=== PATIENT | female | born 1970 | race American Indian/Alaskan Native ===

== ENCOUNTER 2018-03-25 19:44 | Emergency (ER) | payer BC, OTHER ==
--- NOTE | 2018-03-25 20:39 | Emergency Department Report ---
HPI - General Chief Complaint: Psych Time Seen by Provider: 03/25/18 20:12 - HPI HPI: 48-year-old female presents to the emergency department via EMS after an intentional overdose of trazodone about 10-15 pills that happened about an hour prior to arrival. Patient is awake, alert and oriented with complaints of some dizziness. When asked why she took this overdose she says "because life became too much to deal with." She says that she does have a diagnosed history of depression for which she takes Zoloft and trazodone. She also has a past medical history of asthma. She says that she sees Shanon Ambriz at [facility]. ED Past Medical Hx - Past Medical History Hx Hypertension: Yes Hx Congestive Heart Failure: No Hx Diabetes: No Hx Asthma: Yes Hx COPD: No Additional medical history: High cholesterol - Surgical History Additional Surgical History: tubal ligation - Social History Smoking Status: Current Every Day Smoker Substance Use Type: Alcohol - Medications Home Medications: Home Medications Medication Instructions Recorded Confirmed Last Taken Type Fexofenadine/Pseudoephedrine 1 each PO DAILY 09/05/13 09/08/13 Unknown History [Alexandra-D 12 Hour Tablet] Aspirin [Aspirin TAB] 81 mg PO QDAY #30 tablet 09/08/13 Unknown Rx Clopidogrel [Plavix] 75 mg PO QDAY #90 tablet 09/08/13 Unknown Rx Metoprolol [Lopressor TAB] 25 mg PO BID #60 tablet 09/08/13 Unknown Rx Rosuvastatin (Nf) [Crestor] 20 mg PO QDAY #60 tablet 09/08/13 Unknown Rx ED Review of Systems ROS: Stated complaint: SUICIDAL/MH EVAL Other details as noted in HPI Comment: All other systems reviewed and negative Constitutional: denies: chills, fever Eyes: denies: eye pain, eye discharge, vision change ENT: denies: ear pain, throat pain Respiratory: denies: cough, shortness of breath, wheezing Cardiovascular: denies: chest pain, palpitations Gastrointestinal: denies: abdominal pain, nausea, diarrhea Genitourinary: denies: urgency, dysuria, discharge Musculoskeletal: denies: back pain, joint swelling, arthralgia Skin: denies: rash, lesions Neurological: denies: headache, weakness, paresthesias Psychiatric: suicidal thoughts. denies: auditory hallucinations, visual hallucinations Physical Exam - Physical Exam Vital Signs: Vital Signs 03/25/18 20:03 Temperature 98.8 F Pulse Rate 73 Respiratory 16 Rate Blood Pressure 125/57 O2 Sat by Pulse 100 Oximetry Physical Exam: GENERAL: The patient is well-developed well-nourished. HEENT: Normocephalic. Atraumatic. Patient has moist mucous membranes. EYES: Extraocular motions are intact. Pupils are equal and reactive to light bilaterally. NECK: Supple. Trachea is midline. CHEST/LUNGS: Clear to auscultation. There is no respiratory distress noted. HEART/CARDIOVASCULAR: Regular. There is no tachycardia. There is no gallop rub or murmur. ABDOMEN: Abdomen is soft, nontender. Patient has normal bowel sounds. There is no abdominal distention. SKIN: Skin is warm and dry. NEURO: The patient is awake, alert, and oriented. The patient is cooperative. The patient has no focal neurologic deficits. The patient has normal speech. MUSCULOSKELETAL: There is no tenderness or deformity. There is no limitation range of motion. There is no evidence of acute injury. ED Course Vital Signs 03/25/18 20:03 Temperature 98.8 F Pulse Rate 73 Respiratory 16 Rate Blood Pressure 125/57 O2 Sat by Pulse 100 Oximetry - Consultations Consultation #1: 03/25/18 23:04 I called and spoke with poison control regarding the patient's attention IN an overdose. They recommended the usual workup of a CBC, CMP, aspirin, Tylenol and blood alcohol levels. They recommend a EKG and to make sure that the QTC is not greater than 500. They would like electrolytes optimized, especially magnesium. Patient should be monitored for about 6 hours and if no further worsening of symptoms, the patient should be medically cleared. ED Medical Decision Making - Lab Data Result diagrams: 03/25/18 20:30 03/25/18 20:30 - EKG Data -: EKG Interpreted by Me EKG shows normal: sinus rhythm, axis, intervals, QRS complexes (low-voltage), ST -T waves Rate: normal - EKG Data When compared to previous EKG there are: previous EKG unavailable Interpretation: normal EKG - Medical Decision Making Patient presented to the emergency department with an intentional overdose and was appears to be a suicide attempt. She admits to feeling overwhelmed and depressed. For these reasons the patient has been made a 1013. Patient's labs have been unremarkable. I contacted poison control and stated their recommendations in the consultation section. The patient has been in the emergency department for about 6 hours thus far and should be passed any half life of the trazodone. Vital signs stable throughout her ED course. EKG did not show any signs of ST elevation [place], dysrhythmia, prolonged intervals or any acute process. Patient complained of some dizziness at first but this has resolved. She appears medically cleared for psychiatric placement. - Differential Diagnosis depression, bipolar disorder, mood disorder, substance abuse, schizophrenia Critical Care Time: No Critical care attestation.: If time is entered above; I have spent that time in minutes in the direct care of this critically ill patient, excluding procedure time. ED Disposition Clinical Impression: Suicide attempt by substance overdose Qualifiers: Encounter type: initial encounter Qualified Code(s): T65.92XA - Toxic effect of unspecified substance, intentional self-harm, initial encounter Overdose of antidepressant Qualifiers: Encounter type: initial encounter Injury intent: intentional self-harm Qualified Code(s): T43.202A - Poisoning by unspecified antidepressants, intentional self-harm, initial encounter Depression Qualifiers: Depression Type: unspecified Qualified Code(s): F32.9 - Major depressive disorder, single episode, unspecified Disposition: DC/TX-65 PSY HOSP/PSY UNIT Is pt being admited?: No Condition: Stable Referrals: PRIMARY MD PEPPER [Primary Care Provider] - 3-5 Days Time of Disposition: 01:31
[2018-03-25 20:45] LABS: Basophils # (Auto) 0.1 K/mm3 (0.0-0.1); Basophils % (Auto) 0.8 % (0.0-1.8); Eosinophils # (Auto) 0.1 K/mm3 (0.0-0.4); Eosinophils % (Auto) 1.3 % (0.0-4.3); Hematocrit 40.7 % (30.3-42.9); Hemoglobin 13.1 gm/dl (10.1-14.3); Lymphocytes # (Auto) 2.1 K/mm3 (1.2-5.4); Lymphocytes % (Auto) 21.5 % (13.4-35.0); Mean Corpuscular HGB Conc 32 % (30-34); Mean Corpuscular Hemoglobin 30 pg (28-32); Mean Corpuscular Volume 92 fl (79-97); Monocytes # (Auto) 0.5 K/mm3 (0.0-0.8); Monocytes % (Auto) 5.6 % (0.0-7.3); Platelet Count 164 K/mm3 (140-440); Red Blood Count 4.43 M/mm3 (3.65-5.03); Red Cell Distribution Width 18.2 % (13.2-15.2)
[2018-03-25 21:05] LABS: BUN/Creatinine Ratio 14; Blood Urea Nitrogen 10 mg/dL (7-17); Calcium 8.7 mg/dL (8.4-10.2); Hemolysis Index 34
[2018-03-25 23:09] LABS: Bilirubin,Urine NEG (Negative); Blood,Urine NEG (Negative); Color,Urine Yellow (Yellow); Mucus,Urine FEW /HPF; Protein,Urine <15 mg/dL mg/dL (Negative); Urobilinogen,Urine < 2.0 mg/dL (<2.0)
[2018-03-25 23:13] LABS: Amphetamine Screen,Urine PRESUMPTIVE NEGATIVE; Benzodiazepines Screen,Urine PRESUMPTIVE NEGATIVE; Cannabinoid Screen,Urine PRESUMPTIVE NEGATIVE; Cocaine Screen,Urine PRESUMPTIVE NEGATIVE; Methadone Screen,Urine PRESUMPTIVE NEGATIVE; Opiate Screen,Urine PRESUMPTIVE NEGATIVE
[2018-03-27 09:13] VITALS: BP 114/50
== END 2018-03-27 09:15 ==
LOC: ED 19:44
DX: T43.202A Poisoning by unspecified antidepressants, intentional self-harm, initial encounter (principal); F32.9 Major depressive disorder, single episode, unspecified; I10 Essential (primary) hypertension; J45.909 Unspecified asthma, uncomplicated; E78.00 Pure hypercholesterolemia, unspecified; F17.200 Nicotine dependence, unspecified, uncomplicated; F10.920 Alcohol use, unspecified with intoxication, uncomplicated; Z79.82 Long term (current) use of aspirin; Z98.51 Tubal ligation status; Y92.89 Other specified places as the place of occurrence of the external cause
CPT/HCPCS: 36415; 80048; 80307; 81001; 83735; 85025; 93005; 93010; 99285; G0480; 80320